=== PATIENT | female | born 1995 | race African-American/Black ===

== ENCOUNTER 2017-02-24 11:15 | Observation (INO) | payer MEDICAID ==
[~2017-02-24] VITALS: Ht 157.5 cm; Wt 68.0 kg
[2017-02-24 12:54] LABS: CLARITY URINE CLEAR (CLEAR); COLOR URINE YELLOW (YELLOW); GLUCOSE URINE NEGATIVE (NEGATIVE); KETONES URINE NEGATIVE (NEGATIVE); LEUKOCYTE ESTERASE URINE 1+ (NEGATIVE); NITRITE URINE NEGATIVE (NEGATIVE); OCCULT BLOOD URINE NEGATIVE (NEGATIVE); PROTEIN URINE NEGATIVE (NEGATIVE); SPECIFIC GRAVITY URINE 1.009 (1.005-1.030); UROBILINOGEN URINE 0.2 E.U./dL (0.2-1.0)
[2017-02-24] MEDS ORDERED: PREN-88 PO (13:16)
[2017-02-24] MEDS ORDERED: FERR-63 PO (13:16)
[2017-02-24] MEDS ORDERED: LOV40 SUBCUT (13:16)
[2017-02-24 13:20] LABS: BACTERIA URINE 1+; MUCUS URINE TRACE /lpf (< = 2+); RBC URINE 0-2 /hpf (0-2); SQUAMOUS EPITHELIAL CELL URINE 1+ /lpf (RARE/1+)
[2017-02-24] MEDS ORDERED: LACTATED RINGERS 1,000 ML IV SCH (14:00)
[2017-02-24] MEDS ORDERED: TERBUTALINE SULFATE 1MG/ML VIAL SUBCUT PRN (15:00)
[2017-02-24] MEDS ORDERED: CEFAZOLIN 1000MG PREMIX 50 ML IV NR (15:00)
== END 2017-02-24 16:05 | disposition home or self-care (01) ==
LOC: L&D 11:15
PROVIDERS: ADMIT Specialist; ATTEND Specialist
DX: O26.893 Other specified pregnancy related conditions, third trimester (principal); R10.30 Lower abdominal pain, unspecified; Z3A.34 34 weeks gestation of pregnancy
CPT/HCPCS: 81001; 96361; 96365; 96372; 99281; G0378; J0690; J3105; J7120; 96360